=== PATIENT | female | born 1985 | race Caucasian/White ===

== ENCOUNTER 2020-09-12 20:15 | Emergency (ER) | payer BC ==
[2020-09-12 20:22] VITALS: TEMP 98.5
[2020-09-12] MEDS ORDERED: KETOROLAC 15 MG/ML 1 ML VIAL IVP STA (20:34)
[2020-09-12] MEDS ORDERED: SODIUM CHLORIDE 0.9% 1,000 ML IV STA (20:34)
[2020-09-12] MEDS ORDERED: ONDANSETRON 4 MG/2 ML VIAL IVP STA (20:34)
--- NOTE | 2020-09-12 20:41 | ED ---
Abdominal Pain HPI - General Chief Complaint: Abdominal Pain Stated Complaint: ABD pain Source: patient, family, RN notes reviewed Mode of arrival: ambulatory Limitations: no limitations - History of Present Illness Initial Comments: 34-year-old well-appearing well-nourished white female presents to the emergency room with family member complaining of 3 days of right upper abdominal pain that radiates to her right lower quadrant. She states that the pain is 6 out of 10 and sharp. Patient states that she also has nausea but denies any vomiting. She also denies any fevers or cough or any sick contacts. She states that she does have a history of ovarian cyst on the left but has never been told she has been on the right. She states that her period started 2 days ago and has been heavy. She states also that she was just taken off of control pills by her primary care doctor 2 months ago for thickened uterus. Patient states she takes oxybutynin for overactive bladder. No other medications. She is a nonsmoker. Patient states that she does have a family history of kidney stones. No family history of gallbladder disease. MD Complaint: abdominal pain -: days(s) (3) Location: RUQ Radiation: RLQ Severity scale (1-10): 6 Quality: stabbing Consistency: intermittent Improves With: nothing Worsens With: other (Outpatient) Associated Symptoms: nausea, other (Decreased appetite) - Related Data LMP Date: 09/10/20 LMP (females 10-50): this week Home Medications Medication Instructions Recorded Confirmed Oxybutynin Chloride [Ditropan] 5 mg PO HS 09/12/20 09/12/20 Previous Rx's Medication Instructions Recorded Ondansetron Odt [Zofran Odt] 4 mg PO Q8HR PRN #10 tab 09/12/20 Allergies Allergy/AdvReac Type Severity Reaction Status Date / Time No Known Allergies Allergy Verified 09/12/20 21:09 Review of Systems ROS Statement: Those systems with pertinent positive or pertinent negative responses have been documented in the HPI. ROS Other: All systems not noted in ROS Statement are negative. Past Medical History Additional Past Medical History / Comment(s): gestational diabetes. ovarian cysts. History of Any Multi-Drug Resistant Organisms: None Reported Past Surgical History: No Surgical Hx Reported Past Psychological History: No Psychological Hx Reported Smoking Status: Never smoker Past Alcohol Use History: None Reported Past Drug Use History: None Reported General Exam Limitations: no limitations General appearance: alert, in no apparent distress Head exam: Present: atraumatic, normocephalic, normal inspection Eye exam: Present: normal appearance, PERRL, EOMI. Absent: scleral icterus, conjunctival injection, periorbital swelling Pupils: Present: normal accommodation ENT exam: Present: normal exam, normal oropharynx, mucous membranes moist Neck exam: Present: normal inspection, full ROM. Absent: tenderness, meningismus, lymphadenopathy, thyromegaly Respiratory exam: Present: normal lung sounds bilaterally. Absent: respiratory distress, wheezes, rales, rhonchi, stridor, chest wall tenderness, accessory muscle use, decreased breath sounds, prolonged expiratory Cardiovascular Exam: Present: regular rate, normal rhythm, normal heart sounds. Absent: systolic murmur, diastolic murmur, rubs, gallop, clicks GI/Abdominal exam: Present: soft, tenderness (Right upper radiates to right lower), normal bowel sounds. Absent: distended, guarding, rebound, rigid Extremities exam: Present: normal inspection, full ROM, normal capillary refill. Absent: tenderness, pedal edema, joint swelling, calf tenderness Back exam: Present: normal inspection, full ROM. Absent: tenderness, CVA tenderness (R), CVA tenderness (L), muscle spasm, paraspinal tenderness, vertebral tenderness, rash noted Neurological exam: Present: alert, oriented X3, CN II-XII intact Psychiatric exam: Present: normal affect, normal mood Skin exam: Present: warm, dry, intact, normal color. Absent: rash, cyanosis, diaphoretic, erythema, petechiae, pallor, mottled Course Vital Signs 09/12/20 09/12/20 20:17 21:39 Temperature 98.5 F Pulse Rate 77 65 Respiratory 18 14 Rate Blood Pressure 142/98 123/83 O2 Sat by Pulse 98 98 Oximetry Medical Decision Making - Medical Decision Making WBC count is 8.8, hemoglobin and hematocrit stable at 12 and 36 respectively, BUN is 21 creatinine is 1.11, glucose is 108, PLT is 70. UA shows large blood however patient is menstruating, urine is negative. Patient has a large obstructing 12mm calculus at the right UPJ with hydronephrosis. There is a 10 mm calculus lateral right kidney with multiple smaller calculi in the upper right Diogenes. There is a 3 mm calculus in the upper pole of the left kidney. There is no retroperitoneal adenopathy. Liver spleen stomach pancreas and gallbladder appear normal. Patient has not had any vomiting in the emergency room she is able to urinate on her own without difficulty, she has been afebrile. Case discussed with Dr. Gonzalez who recommended sending patient home to follow up with urology next week. Patient will be given a dose of Flomax, a starter pack of Tylenol #3's, and a prescription for Zofran. She'll also be directed to return to the emergency room with any increasing pain, nausea vomiting or fevers. - Lab Data Result diagrams: 09/12/20 20:46 09/12/20 20:46 Lab Results 09/12/20 09/12/20 09/12/20 Range/Units 20:46 20:46 20:46 WBC 8.8 (3.8-10.6) k/uL RBC 4.05 (3.80-5.40) m/uL Hgb 12.1 (11.4-16.0) gm/dL Hct 36.2 (34.0-46.0) % MCV 89.4 (80.0-100.0) fL MCH 29.9 (25.0-35.0) pg MCHC 33.4 (31.0-37.0) g/dL RDW 13.4 (11.5-15.5) % Plt Count 229 (150-450) k/uL MPV 7.4 Neutrophils % 61 % Lymphocytes % 29 % Monocytes % 6 % Eosinophils % 1 % Basophils % 0 % Neutrophils # 5.4 (1.3-7.7) k/uL Lymphocytes # 2.6 (1.0-4.8) k/uL Monocytes # 0.5 (0-1.0) k/uL Eosinophils # 0.1 (0-0.7) k/uL Basophils # 0.0 (0-0.2) k/uL Sodium (137-145) mmol/L Potassium (3.5-5.1) mmol/L Chloride (98-107) mmol/L Carbon Dioxide (22-30) mmol/L Anion Gap mmol/L BUN (7-17) mg/dL Creatinine (0.52-1.04) mg/dL Est GFR (CKD-EPI)AfAm (>60 ml/min/1.73 sqM) Est GFR (CKD-EPI)NonAf (>60 ml/min/1.73 sqM) Glucose (74-99) mg/dL Calcium (8.4-10.2) mg/dL Total Bilirubin (0.2-1.3) mg/dL AST (14-36) U/L ALT (4-34) U/L Alkaline Phosphatase (38-126) U/L Total Protein (6.3-8.2) g/dL Albumin (3.5-5.0) g/dL Amylase (30-110) U/L Lipase (23-300) U/L Urine Color Light Yellow Urine Appearance Cloudy H (Clear) Urine pH 6.0 (5.0-8.0) Ur Specific [place] 1.017 (1.001-1.035) Urine Protein Negative (Negative) Urine Glucose (UA) Negative (Negative) Urine Ketones Negative (Negative) Urine Blood Large H (Negative) Urine Nitrite Negative (Negative) Urine Bilirubin Negative (Negative) Urine Urobilinogen <2.0 (<2.0) mg/dL Ur Leukocyte Esterase Small H (Negative) Urine RBC 9 H (0-5) /hpf Urine WBC 5 (0-5) /hpf Ur Squamous Epith Cells 6 H (0-4) /hpf Urine Mucus Rare H (None) /hpf Urine HCG, Qual Not Detected (Not Detectd) 09/12/20 Range/Units 20:46 WBC (3.8-10.6) k/uL RBC (3.80-5.40) m/uL Hgb (11.4-16.0) gm/dL Hct (34.0-46.0) % MCV (80.0-100.0) fL MCH (25.0-35.0) pg MCHC (31.0-37.0) g/dL RDW (11.5-15.5) % Plt Count (150-450) k/uL MPV Neutrophils % % Lymphocytes % % Monocytes % % Eosinophils % % Basophils % % Neutrophils # (1.3-7.7) k/uL Lymphocytes # (1.0-4.8) k/uL Monocytes # (0-1.0) k/uL Eosinophils # (0-0.7) k/uL Basophils # (0-0.2) k/uL Sodium 139 (137-145) mmol/L Potassium 4.0 (3.5-5.1) mmol/L Chloride 104 (98-107) mmol/L Carbon Dioxide 25 (22-30) mmol/L Anion Gap 10 mmol/L BUN 21 H (7-17) mg/dL Creatinine 1.11 H (0.52-1.04) mg/dL Est GFR (CKD-EPI)AfAm 75 (>60 ml/min/1.73 sqM) Est GFR (CKD-EPI)NonAf 65 (>60 ml/min/1.73 sqM) Glucose 108 H (74-99) mg/dL Calcium 9.9 (8.4-10.2) mg/dL Total Bilirubin 0.4 (0.2-1.3) mg/dL AST 38 H (14-36) U/L ALT 70 H (4-34) U/L Alkaline Phosphatase 47 (38-126) U/L Total Protein 7.1 (6.3-8.2) g/dL Albumin 4.6 (3.5-5.0) g/dL Amylase 54 (30-110) U/L Lipase 111 (23-300) U/L Urine Color Urine Appearance (Clear) Urine pH (5.0-8.0) Ur Specific [place] (1.001-1.035) Urine Protein (Negative) Urine Glucose (UA) (Negative) Urine Ketones (Negative) Urine Blood (Negative) Urine Nitrite (Negative) Urine Bilirubin (Negative) Urine Urobilinogen (<2.0) mg/dL Ur Leukocyte Esterase (Negative) Urine RBC (0-5) /hpf Urine WBC (0-5) /hpf Ur Squamous Epith Cells (0-4) /hpf Urine Mucus (None) /hpf Urine HCG, Qual (Not Detectd) Disposition Clinical Impression: Kidney stones Disposition: HOME SELF-CARE Condition: Fair Additional Instructions: Return to the emergency room with any increasing pain, nausea and vomiting that has not resolved with Zofran or fevers. Take Tylenol threes as needed for pain, Zofran as needed for nausea vomiting and follow-up with urology next week Prescriptions: Ondansetron Odt [Zofran Odt] 4 mg PO Q8HR PRN #10 tab PRN Reason: Nausea Is patient prescribed a controlled substance at d/c from ED?: No Referrals: None,Stated [Primary Care Provider] - 1-2 days Curt Holbrook MD [STAFF PHYSICIAN] - 1-2 days Time of Disposition: 22:17
[2020-09-12 20:59] LABS: Basophils % (A) 0 %; Eosinophils # (A) 0.1 k/uL (0-0.7); Eosinophils % (A) 1 %; HCT 36.2 % (34.0-46.0); HGB 12.1 gm/dL (11.4-16.0); Lymphocytes # (A) 2.6 k/uL (1.0-4.8); Lymphocytes % (A) 29 %; MCH 29.9 pg (25.0-35.0); MCHC 33.4 g/dL (31.0-37.0); MCV 89.4 fL (80.0-100.0); Mean Platelet Volume 7.4; Monocytes # (A) 0.5 k/uL (0-1.0); Monocytes % (A) 6 %; Neutrophils # (A) 5.4 k/uL (1.3-7.7); Neutrophils % (A) 61 %; Platelet Count 229 k/uL (150-450); RBC 4.05 m/uL (3.80-5.40); RDW 13.4 % (11.5-15.5); WBC 8.8 k/uL (3.8-10.6)
[2020-09-12 21:03] LABS: Appearance,Urine Cloudy (Clear); Bilirubin,Urine Negative (Negative); Blood,Urine Large (Negative); Color,Urine Light Yellow; Glucose,Urine (UA) Negative (Negative); Ketones,Urine Negative (Negative); Leukocyte Esterase,Urine Small (Negative); Mucus,Urine Rare /hpf; Nitrite,Urine Negative (Negative); Protein,Urine Negative (Negative); RBC,Urine 9 /hpf (0-5); Specific Gravity,Urine 1.017 (1.001-1.035); Squamous Epithelial Cell,Urine 6 /hpf (0-4); Urobilinogen,Urine <2.0 mg/dL (<2.0); WBC,Urine 5 /hpf (0-5)
[2020-09-12 21:06] LABS: Albumin 4.6 g/dL (3.5-5.0); Calcium 9.9 mg/dL (8.4-10.2); Total Bilirubin 0.4 mg/dL (0.2-1.3); Total Protein 7.1 g/dL (6.3-8.2)
[2020-09-12 21:41] VITALS: BP 123/83; PULSE 65; RESP 14
--- NOTE | 2020-09-12 21:48 | CT ---
EXAMINATION TYPE: CT abdomen pelvis wo con DATE OF EXAM: 09/12/2020 COMPARISON: None HISTORY: flank pain CT DLP: 625.5 mGycm Automated exposure control for dose reduction was used. Images obtained from the diaphragm to the floor the pelvis without contrast. The lung bases are clear of infiltrate. There is no pleural effusion. Heart size is normal. There is no pericardial effusion. Liver spleen stomach pancreas gallbladder appear normal. The bile ducts are not dilated. There is no adrenal mass. There is enlarged right kidney with hydronephrosis. There is a 12 mm obstru cting calculus at the ureteral pelvic junction. There is 10 mm calculus lateral right kidney. There a re smaller calculi upper pole right kidney. There is 3 mm calculus upper pole left kidney. There is n o retroperitoneal adenopathy. Bladder distends smoothly. There is no inguinal hernia. Uterus is retroverted. Lumbar vertebra have n ormal alignment. Disc spaces are fairly normal. There is no compression fracture. The bony pelvis is intact. The hip joints are intact. There is no hip dysplasia. Liver is enlarged and measures 23 cm. T here is long appendix appears normal. There is no mesenteric edema. There is no ascites or free air. There is no bowel obstruction. Spleen measures 13.5 cm. IMPRESSION: Obstructing large calculus at the ureteropelvic junction with moderate hydronephrosis. Bilateral mult iple renal calculi. Hepatomegaly.
[2020-09-12] MEDS ORDERED: TAMSULOSIN 0.4 MG CAP.ER.24H PO STA (22:18)
[2020-09-12] MEDS ORDERED: ACET/COD 300 MG/30 MG STARTER PACK 6 TAB BTL PO STA (22:18)
== END 2020-09-12 22:27 | disposition home or self-care (01) ==
LOC: EC 20:15
DX: N13.2 Hydronephrosis with renal and ureteral calculous obstruction (principal)
CPT/HCPCS: 36415; 80053; 82150; 83690; 85025; 81001; 81025; 74176; 99284; 96374; 96375; 96361; J2405; J1885

== ENCOUNTER 2020-09-13 19:59 | Inpatient (IN) | payer BC ==
[2020-09-13] MEDS ORDERED: MORPHINE SULFATE 4 MG/ML SYRINGE IV STA (20:25)
[2020-09-13] MEDS ORDERED: ONDANSETRON 4 MG/2 ML VIAL IVP STA (20:25)
[2020-09-13] MEDS ORDERED: SODIUM CHLORIDE 0.9% 1,000 ML IV STA (20:25)
[2020-09-13 20:47] LABS: Basophils % (A) 0 %; Eosinophils # (A) 0.2 k/uL (0-0.7); Eosinophils % (A) 2 %; Lymphocytes # (A) 1.8 k/uL (1.0-4.8); Lymphocytes % (A) 24 %; MCH 31.7 pg (25.0-35.0); MCHC 36.4 g/dL (31.0-37.0); Mean Platelet Volume 7.7; Monocytes # (A) 0.5 k/uL (0-1.0); Monocytes % (A) 7 %; Neutrophils % (A) 66 %; Platelet Count 232 k/uL (150-450); RDW 12.6 % (11.5-15.5); WBC 7.6 k/uL (3.8-10.6)
[2020-09-13 21:00] LABS: Albumin 4.3 g/dL (3.5-5.0); Calcium 10.1 mg/dL (8.4-10.2); Potassium 3.7 mmol/L (3.5-5.1); Total Bilirubin 0.4 mg/dL (0.2-1.3); Total Protein 6.8 g/dL (6.3-8.2)
[2020-09-13 21:20] LABS: Appearance,Urine Clear (Clear); Bilirubin,Urine Negative (Negative); Blood,Urine Small (Negative); Color,Urine Light Yellow; Glucose,Urine (UA) Negative (Negative); Hyaline Casts,Urine 1 /lpf (0-2); Ketones,Urine Negative (Negative); Leukocyte Esterase,Urine Small (Negative); Mucus,Urine Rare /hpf; Nitrite,Urine Negative (Negative); PH, Urine 5.5 (5.0-8.0); Protein,Urine Negative (Negative); RBC,Urine 1 /hpf (0-5); Specific Gravity,Urine 1.012 (1.001-1.035); Squamous Epithelial Cell,Urine 3 /hpf (0-4); Urobilinogen,Urine <2.0 mg/dL (<2.0); WBC,Urine 4 /hpf (0-5)
[2020-09-13] MEDS ORDERED: NALOXONE 0.4 MG/ML 1 ML VIAL IV PRN (21:33)
--- NOTE | 2020-09-13 21:37 | ED ---
Abdominal Pain HPI - General Chief Complaint: Abdominal Pain Stated Complaint: Kidney stone-Revisit Time Seen by Provider: 09/13/20 20:07 Source: patient, RN notes reviewed Mode of arrival: ambulatory Limitations: no limitations - History of Present Illness Initial Comments: Patient is a 34-year-old female that presents to emergency department complaini ng of right flank pain. She was recently seen in the emergency room and sent home with 2 large kidney stones. She noted that she called Dr. Holbrook prior to arrival to get admitted for intractable pain and possible stone removal. Patient did appear to be in moderate discomfort while sitting up in bed during exam and interview. She noted that her pain was approximately an 8-9 out of 10. She noted that she is still urinating with no issues. She denied any chest pain first breath headache nausea vomiting diarrhea constipation fever fatigue chills. - Related Data Home Medications Medication Instructions Recorded Confirmed Oxybutynin Chloride [Ditropan] 5 mg PO HS 09/12/20 09/12/20 Previous Rx's Medication Instructions Recorded Ondansetron Odt [Zofran Odt] 4 mg PO Q8HR PRN #10 tab 09/12/20 Allergies Allergy/AdvReac Type Severity Reaction Status Date / Time No Known Allergies Allergy Verified 09/13/20 20:01 Review of Systems ROS Statement: Those systems with pertinent positive or pertinent negative responses have been documented in the HPI. ROS Other: All systems not noted in ROS Statement are negative. Past Medical History Additional Past Medical History / Comment(s): gestational diabetes. ovarian cysts. History of Any Multi-Drug Resistant Organisms: None Reported Past Surgical History: No Surgical Hx Reported Past Psychological History: No Psychological Hx Reported Smoking Status: Never smoker Past Alcohol Use History: None Reported Past Drug Use History: None Reported General Exam Limitations: no limitations General appearance: alert, in no apparent distress Head exam: Present: atraumatic, normocephalic, normal inspection Eye exam: Present: normal appearance, PERRL, EOMI. Absent: scleral icterus, conjunctival injection, periorbital swelling Neck exam: Present: normal inspection Respiratory exam: Present: normal lung sounds bilaterally. Absent: respiratory distress, wheezes, rales, rhonchi, stridor Cardiovascular Exam: Present: regular rate, normal rhythm, normal heart sounds. Absent: systolic murmur, diastolic murmur, rubs, gallop, clicks GI/Abdominal exam: Present: soft, normal bowel sounds. Absent: distended, tenderness, guarding, rebound, rigid Extremities exam: Present: normal inspection, full ROM, normal capillary refill. Absent: tenderness, pedal edema, joint swelling, calf tenderness Back exam: Present: normal inspection, full ROM, CVA tenderness (R) Neurological exam: Present: alert, oriented X3 Psychiatric exam: Present: normal affect, normal mood Skin exam: Present: warm, dry, intact, normal color. Absent: rash Course Vital Signs 09/13/20 20:02 Temperature 98 F Pulse Rate 77 Respiratory 18 Rate Blood Pressure 156/79 O2 Sat by Pulse 100 Oximetry Medical Decision Making - Medical Decision Making 34-year-old female with right sided kidney stones presenting for the second time in the past several days. Labs, 1 L normal saline, 4 g of morphine, 4 mg of Zofran, KUB ordered. Labs unremarkable from previous. Dr. Holbrook was contacted and will accept the admit directly to himself. Case discussed with Dr. Gonzalez - Lab Data Result diagrams: 09/13/20 20:27 09/13/20 20:27 Lab Results 09/13/20 09/13/20 09/13/20 Range/Units 20:27 20:27 20:27 WBC 7.6 (3.8-10.6) k/uL RBC 3.80 (3.80-5.40) m/uL Hgb 12.0 (11.4-16.0) gm/dL Hct 33.0 L (34.0-46.0) % MCV 87.0 (80.0-100.0) fL MCH 31.7 (25.0-35.0) pg MCHC 36.4 (31.0-37.0) g/dL RDW 12.6 (11.5-15.5) % Plt Count 232 (150-450) k/uL MPV 7.7 Neutrophils % 66 % Lymphocytes % 24 % Monocytes % 7 % Eosinophils % 2 % Basophils % 0 % Neutrophils # 5.0 (1.3-7.7) k/uL Lymphocytes # 1.8 (1.0-4.8) k/uL Monocytes # 0.5 (0-1.0) k/uL Eosinophils # 0.2 (0-0.7) k/uL Basophils # 0.0 (0-0.2) k/uL Sodium (137-145) mmol/L Potassium (3.5-5.1) mmol/L Chloride (98-107) mmol/L Carbon Dioxide (22-30) mmol/L Anion Gap mmol/L BUN (7-17) mg/dL Creatinine (0.52-1.04) mg/dL Est GFR (CKD-EPI)AfAm (>60 ml/min/1.73 sqM) Est GFR (CKD-EPI)NonAf (>60 ml/min/1.73 sqM) Glucose (74-99) mg/dL Plasma Lactic Acid Roger (0.7-2.0) mmol/L Calcium (8.4-10.2) mg/dL Total Bilirubin (0.2-1.3) mg/dL AST (14-36) U/L ALT (4-34) U/L Alkaline Phosphatase (38-126) U/L Total Protein (6.3-8.2) g/dL Albumin (3.5-5.0) g/dL Amylase (30-110) U/L Lipase (23-300) U/L Urine Color Light Yellow Urine Appearance Clear (Clear) Urine pH 5.5 (5.0-8.0) Ur Specific [place] 1.012 (1.001-1.035) Urine Protein Negative (Negative) Urine Glucose (UA) Negative (Negative) Urine Ketones Negative (Negative) Urine Blood Small H (Negative) Urine Nitrite Negative (Negative) Urine Bilirubin Negative (Negative) Urine Urobilinogen <2.0 (<2.0) mg/dL Ur Leukocyte Esterase Small H (Negative) Urine RBC 1 (0-5) /hpf Urine WBC 4 (0-5) /hpf Ur Squamous Epith Cells 3 (0-4) /hpf Hyaline Casts 1 (0-2) /lpf Urine Mucus Rare H (None) /hpf Urine HCG, Qual Not Detected (Not Detectd) 09/13/20 09/13/20 Range/Units 20:27 20:27 WBC (3.8-10.6) k/uL RBC (3.80-5.40) m/uL Hgb (11.4-16.0) gm/dL Hct (34.0-46.0) % MCV (80.0-100.0) fL MCH (25.0-35.0) pg MCHC (31.0-37.0) g/dL RDW (11.5-15.5) % Plt Count (150-450) k/uL MPV Neutrophils % % Lymphocytes % % Monocytes % % Eosinophils % % Basophils % % Neutrophils # (1.3-7.7) k/uL Lymphocytes # (1.0-4.8) k/uL Monocytes # (0-1.0) k/uL Eosinophils # (0-0.7) k/uL Basophils # (0-0.2) k/uL Sodium 140 (137-145) mmol/L Potassium 3.7 (3.5-5.1) mmol/L Chloride 103 (98-107) mmol/L Carbon Dioxide 26 (22-30) mmol/L Anion Gap 11 mmol/L BUN 17 (7-17) mg/dL Creatinine 1.12 H (0.52-1.04) mg/dL Est GFR (CKD-EPI)AfAm 74 (>60 ml/min/1.73 sqM) Est GFR (CKD-EPI)NonAf 64 (>60 ml/min/1.73 sqM) Glucose 120 H (74-99) mg/dL Plasma Lactic Acid Roger 1.4 (0.7-2.0) mmol/L Calcium 10.1 (8.4-10.2) mg/dL Total Bilirubin 0.4 (0.2-1.3) mg/dL AST 36 (14-36) U/L ALT 69 H (4-34) U/L Alkaline Phosphatase 46 (38-126) U/L Total Protein 6.8 (6.3-8.2) g/dL Albumin 4.3 (3.5-5.0) g/dL Amylase 53 (30-110) U/L Lipase 103 (23-300) U/L Urine Color Urine Appearance (Clear) Urine pH (5.0-8.0) Ur Specific [place] (1.001-1.035) Urine Protein (Negative) Urine Glucose (UA) (Negative) Urine Ketones (Negative) Urine Blood (Negative) Urine Nitrite (Negative) Urine Bilirubin (Negative) Urine Urobilinogen (<2.0) mg/dL Ur Leukocyte Esterase (Negative) Urine RBC (0-5) /hpf Urine WBC (0-5) /hpf Ur Squamous Epith Cells (0-4) /hpf Hyaline Casts (0-2) /lpf Urine Mucus (None) /hpf Urine HCG, Qual (Not Detectd) Disposition Clinical Impression: Kidney stones Disposition: ADMITTED IP TO THIS HOSP Condition: Stable Is patient prescribed a controlled substance at d/c from ED?: No Referrals: None,Stated [Primary Care Provider] - 1-2 days Time of Disposition: 21:37
[2020-09-13] MEDS: SODIUM CHLORIDE 0.9% 1,000 ML IV SCH (21:56)
--- NOTE | 2020-09-13 22:00 | XR ---
EXAM: Abdomen radiograph. HISTORY: Pain. TECHNIQUE: Upright AP view. COMPARISON: CT 09/12/2020. FINDINGS: There are nondilated bowel loops with a nonobstructive pattern. There is moderate amount of stool thr oughout the colon. There is 5 mm calcific density overlying the right renal shadow and compatible wit h renal calculus. No acute osseous abnormality seen. IMPRESSION: No acute process. Chronic finding as above.
[2020-09-14] MEDS: MORPHINE SULFATE 4 MG/ML SYRINGE IV PRN ×2 (00:02→06:18)
[2020-09-14] MEDS: ONDANSETRON 4 MG/2 ML VIAL IVP PRN ×2 (03:20→08:58)
[2020-09-14] MEDS ORDERED: LACTATED RINGERS 1,000 ML IV SCH (10:15)
--- NOTE | 2020-09-14 11:42 | P.GSHP ---
History of Present Illness H&P Date: 09/14/20 Chief Complaint: Right renal colic The patient is a 34-year-old white female with no prior history of urolithiasis. She presents with a one-week history of right flank pain, which initially was dull but became severe on 09/12/2020. A CT scan at that time showed evidence of moderate right hydronephrosis due to a 12 mm right proximal ureteral calculi. The CT scan also showed an 8 mm right lower pole renal calculus, 3 additional very small right renal calculi, and a 3 mm left upper pole renal calculus. She presented back to the ER yesterday with intractable pain and was admitted. - Constitutional Constitutional: Reports chills, Reports fever - Gastrointestinal Gastrointestinal: Reports nausea, Reports vomiting - Genitourinary (Female) Genitourinary: Reports dysuria, Reports flank pain, Reports hematuria, Reports kidney stones Past Medical History Additional Past Medical History / Comment(s): gestational diabetes. ovarian cysts. History of Any Multi-Drug Resistant Organisms: None Reported Past Surgical History: No Surgical Hx Reported Past Anesthesia/Blood Transfusion Reactions: No Reported Reaction Past Psychological History: No Psychological Hx Reported Smoking Status: Never smoker Past Alcohol Use History: None Reported Past Drug Use History: None Reported - Past Family History Father Family Medical History: Diabetes Mellitus, Hypertension Medications and Allergies Home Medications Medication Instructions Recorded Confirmed Type Oxybutynin Chloride [Ditropan] 5 mg PO HS 09/12/20 09/14/20 History Ondansetron [Zofran] 4 mg PO Q8H PRN 09/14/20 09/14/20 History Allergies Allergy/AdvReac Type Severity Reaction Status Date / Time No Known Allergies Allergy Verified 09/14/20 09:58 Surgical - Exam Vital Signs Temp Pulse Resp BP Pulse Ox 98 F 77 18 156/79 100 09/13/20 20:02 09/13/20 20:02 09/13/20 20:02 09/13/20 20:02 09/13/20 20:02 - General well developed, well nourished, severe pain - Neck no masses, trachea midline - Respiratory normal respiratory effort - Abdomen Abdomen: soft, tender (Moderate right-sided tenderness), no guarding, no rigid, no rebound, no distended - Psychiatric oriented to time, oriented to person, oriented to place, speech is normal, memory intact Results - Labs 09/13/20 20:27 09/13/20 20:27 Abnormal Lab Results - Last 24 Hours (Table) 09/13/20 09/13/20 09/13/20 Range/Units 20:27 20:27 20:27 Hct 33.0 L (34.0-46.0) % Creatinine 1.12 H (0.52-1.04) mg/dL Glucose 120 H (74-99) mg/dL ALT 69 H (4-34) U/L Urine Blood Small H (Negative) Ur Leukocyte Esterase Small H (Negative) Urine Mucus Rare H (None) /hpf Diabetes panel 09/13/20 Range/Units 20:27 Sodium 140 (137-145) mmol/L Potassium 3.7 (3.5-5.1) mmol/L Chloride 103 (98-107) mmol/L Carbon Dioxide 26 (22-30) mmol/L BUN 17 (7-17) mg/dL Creatinine 1.12 H (0.52-1.04) mg/dL Glucose 120 H (74-99) mg/dL Calcium 10.1 (8.4-10.2) mg/dL AST 36 (14-36) U/L ALT 69 H (4-34) U/L Alkaline Phosphatase 46 (38-126) U/L Total Protein 6.8 (6.3-8.2) g/dL Albumin 4.3 (3.5-5.0) g/dL Calcium panel 09/13/20 Range/Units 20:27 Calcium 10.1 (8.4-10.2) mg/dL Albumin 4.3 (3.5-5.0) g/dL Pituitary panel 09/13/20 Range/Units 20:27 Sodium 140 (137-145) mmol/L Potassium 3.7 (3.5-5.1) mmol/L Chloride 103 (98-107) mmol/L Carbon Dioxide 26 (22-30) mmol/L BUN 17 (7-17) mg/dL Creatinine 1.12 H (0.52-1.04) mg/dL Glucose 120 H (74-99) mg/dL Calcium 10.1 (8.4-10.2) mg/dL Adrenal panel 09/13/20 Range/Units 20:27 Sodium 140 (137-145) mmol/L Potassium 3.7 (3.5-5.1) mmol/L Chloride 103 (98-107) mmol/L Carbon Dioxide 26 (22-30) mmol/L BUN 17 (7-17) mg/dL Creatinine 1.12 H (0.52-1.04) mg/dL Glucose 120 H (74-99) mg/dL Calcium 10.1 (8.4-10.2) mg/dL Total Bilirubin 0.4 (0.2-1.3) mg/dL AST 36 (14-36) U/L ALT 69 H (4-34) U/L Alkaline Phosphatase 46 (38-126) U/L Total Protein 6.8 (6.3-8.2) g/dL Albumin 4.3 (3.5-5.0) g/dL - Imaging Abdominal x-ray: report reviewed, image reviewed CT scan - abdomen: report reviewed, image reviewed Assessment and Plan (1) Calculus of ureter Current Visit: Yes Status: Acute Code(s): N20.1 - CALCULUS OF URETER SNOMED Code(s): 43014171 (2) Kidney stones Current Visit: Yes Status: Acute Code(s): N20.0 - CALCULUS OF KIDNEY SNOMED Code(s): 33052723 (3) Hydronephrosis with renal and ureteral calculous obstruction Current Visit: Yes Status: Acute Code(s): N13.2 - HYDRONEPHROSIS WITH RENAL AND URETERAL CALCULOUS OBSTRUCTION SNOMED Code(s): 841656247 Plan: The patient is receiving parenteral analgesics and antiemetics. She will undergo cystoscopy with right ureteral stent insertion. The procedure was reviewed in detail with the patient and her friend. The rationale for the procedure was discussed, as were potential risks which include anesthesia, infection, ureteral injury, and inability to successfully place the stent. Ureteroscopy will be performed if needed to assist in stent placement. A ureteral stent should relieve her pain significantly, and arrangements were then be made for her to undergo elective ureteroscopy with laser lithotripsy in 2-3 weeks. The possible need for a percutaneous nephrostomy tube was discussed. Time with Patient: Greater than 30
[2020-09-14] MEDS ORDERED: ONDANSETRON 4 MG/2 ML VIAL IVP PRN (11:43)
[2020-09-14] MEDS ORDERED: MORPHINE SULFATE 10 MG/ML 1ML VIAL IV PRN (11:44)
[2020-09-14] MEDS ORDERED: PROPOFOL 10 MG/ML 20 ML VIAL IV ONE (14:30)
[2020-09-14] MEDS ORDERED: fentaNYL (PF) 50 MCG/ML 2 ML AMP ONE (14:30)
[2020-09-14] MEDS ORDERED: LIDOCAINE 1% INJ 10MG/ML (20 ML MDV) ONE (14:30)
[2020-09-14] MEDS ORDERED: MIDAZOLAM 2 MG/2 ML VIAL ONE (14:30)
[2020-09-14] MEDS ORDERED: IV FLUID CONTINUATION 1,000 ML IV ONE (14:34)
[2020-09-14] MEDS ORDERED: SODIUM CHLORIDE 0.9% 100 ML with ceFAZolin 2,000 MG IV ONE ×4 (14:50)
[2020-09-14] MEDS ORDERED: LACTATED RINGERS 1,000 ML IV ONE (15:18)
[2020-09-14] MEDS ORDERED: HYDROcodone/APAP 5-325MG 1 EACH TAB PO PRN ×2 (15:35)
--- NOTE | 2020-09-14 15:41 | P.OP ---
Date of Procedure: 09/14/20 Preoperative Diagnosis: Right hydronephrosis secondary to right ureteral calculus Postoperative Diagnosis: Same Procedure(s) Performed: Cystoscopy, right ureteroscopy, right ureteral stent insertion Anesthesia: CHEIKHA Surgeon: uCrt Holbrook Estimated Blood Loss (ml): 0 IV fluids (ml): 500 Pathology: none sent Condition: stable Disposition: PACU Indications for Procedure: The patient is a 34-year-old white female with no prior history of urolithiasis. She presents with a one-week history of right flank pain, which initially was dull but became severe on 09/12/2020. A CT scan at that time showed evidence of moderate right hydronephrosis due to a 12 mm right proximal ureteral calculi. The CT scan also showed an 8 mm right lower pole renal calculus, 3 additional very small right renal calculi, and a 3 mm left upper pole renal calculus. She presented back to the ER yesterday with intractable pain and was admitted. She now comes for stent placement. Operative Findings: 12 mm right proximal ureteral calculus, radio-opaque, impacted. Description of Procedure: The patient was taken to the operating room and placed in the dorsolithotomy position, with legs supported in Colt stirrups. The external genitalia was prepped and draped sterilely. The 30 lens was used to introduce the 22-Bengali Stortz cystoscopic sheath through the urethra and into the bladder under direct vision. The bladder was examined in its entirety. Both ureteral orifices were of normal anatomic location and configuration. No tumors or foreign bodies were seen. An angle-tip 0.035 inch Glidewire was passed through the cystoscope. The right ureteral orifice was cannulated, and the Glidewire was slowly advanced up to the calculus. However, they could not be passed beyond the calculus, which was impacted. A 6-Bengali open-ended catheter was passed over the wire, up to the calculus, but it was still not possible to pass the wire tip beyond the calculus. The cystoscope was removed, and the [facility] semirigid ureteroscope was advanced into the bladder. The right ureteral orifice was cannulated, but the intramural portion of the ureter was narrowed. Therefore, the Glidewire was passed up to the calculus, and an 11-Bengali ureteral access catheter obturator was passed over the wire, up to the mid ureter. This was then removed along with the Glidewire, and it was then possible to advance the ureteroscope up to the calculus. On visualizing the calculus, a straight-tipped Glidewire was passed alongside the calculus and up to the right renal pelvis, were coiled. The ureteroscope was removed, and the Glidewire was backloaded into the cystoscope, which was passed into the bladder. A 24 cm, 6-Bengali double-J ureteral stent was placed over the wire. Proper stent positioning was verified fluor oscopically and endoscopically. The bladder was emptied and the cystoscope removed. The patient tolerated the procedure well was taken to the recovery room in stable condition.
[2020-09-14] MEDS: SODIUM CHLORIDE 0.9% 1,000 ML IV SCH (16:29)
[2020-09-14] MEDS: ACETAMINOPHEN TAB 325 MG TAB PO PRN (20:04)
[2020-09-15 02:54] VITALS: RESP 18
[2020-09-15] MEDS: SODIUM CHLORIDE 0.9% 1,000 ML IV SCH (06:18)
[2020-09-15] MEDS ORDERED: HYDROmorphone 0.5 MG/0.5 ML SYRINGE IVP PRN (07:00)
[2020-09-15 08:37] VITALS: BP 109/67; PULSE 78; TEMP 97.9
[2020-09-15] MEDS: ACETAMINOPHEN TAB 325 MG TAB PO PRN (08:38)
--- NOTE | 2020-09-15 09:25 | FL ---
Fluoroscopy History: Right ureteral stent placement. Stent placed in Right ureter with . 2 mins and 10 sec of fluoro used and 1 image saved.
--- NOTE | 2020-09-15 11:21 | P.DS ---
Providers Date of admission: 09/13/20 21:24 Expected date of discharge: 09/15/20 Attending physician: Curt Holbrook Primary care physician: Stated None - Discharge Diagnosis(es) (1) Calculus of ureter Current Visit: Yes Status: Acute (2) Kidney stones Current Visit: Yes Status: Acute (3) Hydronephrosis with renal and ureteral calculous obstruction Current Visit: Yes Status: Acute Hospital Course: The patient was admitted with severe right renal colic due to a 12 mm right proximal ureteral calculus. She was treated with IV hydration, parenteral analgesics, and antiemetics. She underwent cystoscopy with right ureteral stent insertion. On the morning of discharge, she felt considerably better. She reported a headache and suprapubic discomfort, for which she was taking Tylenol. She will be discharged home and continue taking oxybutynin chloride, as this may diminish bladder discomfort secondary to her ureteral stent. Procedures: Cystoscopy, right ureteral stent insertion on 09/14/2020 Patient Condition at Discharge: Stable Plan - Discharge Summary New Discharge Prescriptions: No Action Ondansetron [Zofran] 4 mg PO Q8H PRN PRN Reason: Nausea Oxybutynin Chloride [Ditropan] 5 mg PO HS Discharge Medication List Oxybutynin Chloride [Ditropan] 5 mg PO HS 09/12/20 [History] Ondansetron [Zofran] 4 mg PO Q8H PRN 09/14/20 [History] Follow up Appointment(s)/Referral(s): None,Stated [Primary Care Provider] - 1-2 days Activity/Diet/Wound Care/Special Instructions: Diet as tolerated. Activity as tolerated. The patient will be contacted by Dr. Holbrook' office to arrange follow-up. Discharge Disposition: HOME SELF-CARE
== END 2020-09-15 12:50 | disposition home or self-care (01) | DRG 661 ==
LOC: EC 19:59 → 6PED 21:24
PROVIDERS: ADMIT Urology; ATTEND Urology
PROC: 0T768DZ Dilation of Right Ureter with Intraluminal Device, Via Natural or Artificial Opening Endoscopic (ICD-10-PCS; principal; 2020-09-14 13:00)
PROC: 0T9B80Z Drainage of Bladder with Drainage Device, Via Natural or Artificial Opening Endoscopic (ICD-10-PCS; 2020-09-14 13:00)
DX: N13.2 Hydronephrosis with renal and ureteral calculous obstruction (principal); Z86.32 Personal history of gestational diabetes
CPT/HCPCS: 36415; 74018; 80053; 81001; 81025; 82150; 83605; 83690; 85025; 96374; 96375; 99285

== ENCOUNTER 2020-09-26 08:09 | Day surgery (SDC) | payer BC ==
--- NOTE | 2020-09-18 17:25 | P.GSHP ---
History of Present Illness H&P Date: 09/18/20 Chief Complaint: Right renal colic The patient is a 34-year-old white female with no prior history of urolithiasis. She presented with a one-week history of right flank pain, which initially was dull but became severe on 09/12/2020. A CT scan at that time showed evidence of moderate right hydronephrosis due to a 12 mm right proximal ureteral calculi. The CT scan also showed an 8 mm right lower pole renal calculus, 3 additional very small right renal calculi, and a 3 mm left upper pole renal calculus. She underwent right ureteral stent insertion on 09/14/2020. - Constitutional Constitutional: Reports chills, Reports fever - Gastrointestinal Gastrointestinal: Reports nausea, Reports vomiting - Genitourinary (Female) Genitourinary: Reports dysuria, Reports flank pain, Reports hematuria, Reports kidney stones Past Medical History Additional Past Medical History / Comment(s): gestational diabetes. ovarian cysts. History of Any Multi-Drug Resistant Organisms: None Reported Past Surgical History: No Surgical Hx Reported Past Anesthesia/Blood Transfusion Reactions: No Reported Reaction Past Psychological History: No Psychological Hx Reported Smoking Status: Never smoker Past Alcohol Use History: None Reported Past Drug Use History: None Reported - Past Family History Father Family Medical History: Diabetes Mellitus, Hypertension Medications and Allergies Home Medications Medication Instructions Recorded Confirmed Type Oxybutynin Chloride [Ditropan] 5 mg PO HS 09/12/20 09/14/20 History Ondansetron [Zofran] 4 mg PO Q8H PRN 09/14/20 09/14/20 History Allergies Allergy/AdvReac Type Severity Reaction Status Date / Time No Known Allergies Allergy Verified 09/14/20 09:58 Surgical - Exam - General well developed, well nourished, no distress - Respiratory normal respiratory effort - Abdomen Abdomen: soft, non tender, no guarding, no rigid, no rebound - Psychiatric oriented to time, oriented to person, oriented to place, speech is normal, memory intact Results - Imaging CT scan - abdomen: report reviewed, image reviewed Assessment and Plan (1) Calculus of ureter Status: Acute Code(s): N20.1 - CALCULUS OF URETER SNOMED Code(s): 51611169 (2) Kidney stones Status: Acute Code(s): N20.0 - CALCULUS OF KIDNEY SNOMED Code(s): 33228099 Plan: Cystoscopy, right ureteral stent removal, right ureteroscopy with Holmium laser lithotripsy and possible stone basketing. The procedure has been reviewed in detail with the patient. She has been made aware of potential risks, which include anesthesia, bleeding, infection, and ureteral injury. Given the stone burden, she has been made aware of the fact that she may require a secondary procedure.
[2020-09-24 13:14] VITALS: BMI 32.9
[~2020-09-26 08:09] MED LIST: DEXAMETHASONE SOD PHOSPHATE 4 MG/ML 1 ML VIAL IV ONE; HYDROmorphone 0.5 MG/0.5 ML SYRINGE IVP PRN; LACTATED RINGERS 1,000 ML IV SCH; MIDAZOLAM 2 MG/2 ML VIAL IV PRN; ONDANSETRON 4 MG/2 ML VIAL IVP ONE; SCOPOLAMINE 1.5MG/72HR PATCH TRANSDERM ONE
--- NOTE | 2020-09-26 08:47 | XR ---
EXAMINATION TYPE: XR KUB DATE OF EXAM: 09/26/2020 COMPARISON: 09/13/2020 INDICATION: Stones TECHNIQUE: Single view abdomen supine view FINDINGS: There is a normal bowel gas pattern. Psoas margins are normal. No organomegaly is present. There is a 1.6 x 0.8 cm calcification in the right transverse process adjacent to the ureteral stent. A 0.0 cm calcification overlies the right mid kidney adjacent to the proximal ureteral stent. IMPRESSION: 1. Right ureteral stone measuring 1.6 x 0.8 cm. 2. Right renal stone measured 0.7 cm.
[2020-09-26] MEDS ORDERED: LACTATED RINGERS 1,000 ML IV ONE ×2 (08:59→14:20)
[2020-09-26] MEDS ORDERED: HYDROmorphone (PF) 1 MG/ML ONE (12:57)
[2020-09-26] MEDS ORDERED: LIDOCAINE 1% INJ 10MG/ML (20 ML MDV) ONE (12:57)
[2020-09-26] MEDS ORDERED: KETOROLAC 15 MG/ML 1 ML VIAL ONE (12:57)
[2020-09-26] MEDS ORDERED: fentaNYL (PF) 50 MCG/ML 2 ML AMP ONE (12:57)
[2020-09-26] MEDS ORDERED: MIDAZOLAM 2 MG/2 ML VIAL ONE (12:57)
[2020-09-26] MEDS ORDERED: PROPOFOL 10 MG/ML 20 ML VIAL IV ONE (12:57)
--- NOTE | 2020-09-26 14:38 | P.OP ---
Date of Procedure: 09/26/20 Preoperative Diagnosis: Right ureteral calculus, right renal calculi Postoperative Diagnosis: Same Procedure(s) Performed: Cystoscopy, right ureteral stent removal, right ureteroscopy with Holmium laser lithotripsy and stone basketing Anesthesia: BORA Surgeon: Curt Holbrook Estimated Blood Loss (ml): 5 IV fluids (ml): 1,000 Pathology: other (Calculus fragments, simple chemical analysis) Condition: stable Disposition: PACU Indications for Procedure: The patient is a 34-year-old white female with no prior history of urolithiasis. She presented with a one-week history of right flank pain, which initially was dull but became severe on 09/12/2020. A CT scan at that time showed evidence of moderate right hydronephrosis due to a 12 mm right proximal ureteral calculi. The CT scan also showed an 8 mm right lower pole renal calculus, 3 additional very small right renal calculi, and a 3 mm left upper pole renal calculus. She underwent right ureteral stent insertion on 09/14/2020. Operative Findings: Large right proximal ureteral calculus, fragmented and removed completely. Multiple right renal calculi, fragmented completely. Description of Procedure: The patient was taken to the operating room and placed in the dorsolithotomy position, with legs supported in Colt stirrups. The external genitalia was prepped and draped sterilely. The 30 lens was used to introduce the 21-Danish Schwab cystoscopic sheath through the urethra and into the bladder under direct vision. The bladder was examined in its entirety. The distal end of the right ureteral stent was grasped with Monegasque forceps and removed along with the cystoscope. The Schwab semirigid ureteroscope was advanced into the bladder, and the right ureteral orifice was cannulated. The ureteroscope was slowly advanced under direct vision up to the calculus. The 272 micron Holmium laser probe was passed through the ureteroscope, and lithotripsy was performed. The calculus was fragmented completely. The 1.9-Danish nitinol basket was used to remove all of the calculus fragments from the ureter. The mini flexible ureteroscope was then advanced into the bladder, and the right ureteral orifice was cannulated. The ureteroscope was slowly advanced under direct vision, up to the right renal pelvis. A bifid pelvis was noted. Each calyx was examined. The 8 mm calculus was seen within a lower pole calyx. Several additional smaller calculi were seen. All fragmented completely. This was done until there were no residual calculus fragments exceeding 1 mm in size. The ureteroscope was slowly withdrawn under direct vision. There were no residual calculus fragments within the ureter, and no evidence of ureteral trauma. After removing the ureteroscope, the cystoscope was advanced into the bladder and the bladder was emptied. Calculus fragments were retrieved and sent for chemical analysis. The patient tolerated the procedure well and was taken to the recovery room in stable condition. [facility] Report: Procedure Acuity: Elective Stone Size and Location: 12 mm, right proximal ureter Ureteral Dilation: No Ureteral Access Sheath Used: No Stone Sent for Analysis: Yes All Stones/Fragments Were Removed with a Basket: Yes Complications: No Preoperative Antibiotics Given: Yes Stent Placed: No
[2020-09-26 14:46] VITALS: RESP 16; TEMP 98.6
--- NOTE | 2020-09-26 15:06 | FL ---
Fluoroscopy INDICATION: Pain FINDINGS: Fluoroscopy time: 3 seconds. Images obtained: 1. IMPRESSIONS: 1. Documentation of fluoroscopy.
[2020-09-26 16:02] VITALS: PULSE 100
[2020-09-26 16:08] VITALS: BP 129/81
[2020-09-26] MEDS ORDERED: ONDANSETRON 4 MG/2 ML VIAL ONE (16:19)
== END 2020-09-26 17:01 | disposition home or self-care (01) ==
LOC: OR 08:09
PROVIDERS: ATTEND Urology
DX: N13.2 Hydronephrosis with renal and ureteral calculous obstruction (principal); Z88.5 Allergy status to narcotic agent; Z88.8 Allergy status to other drugs, medicaments and biological substances
CPT/HCPCS: 81025; 82365; 74018; 52353; J2250; J1100; J0690; J2405; J2001; J3010; J1170; J1885; J2704

== ENCOUNTER → 2020-10-28 | Outpatient (CLI) | payer BC ==
--- NOTE | 2020-10-28 15:13 | XR ---
EXAMINATION TYPE: XR KUB DATE OF EXAM: 10/28/2020 HISTORY: Pain Comparison: 09/26/2020ingle KUB is submitted for interpretation. Findings: Right renal calculi: Previously noted right renal calculi is not redemonstrated. Right ureteral calculi: Right ureteral stent has been removed in the interval. Large right mid urete ral calculus seen previously is not identified at this time. Small calcification at the S4 level on t he right measures 3 mm. Left renal calculi: None Visualized. Left ureteral calculi: None Visualized. Pelvic calcifications: Yes Bowel gas pattern is unremarkable. No free air. No mass effects. IMPRESSION: 1. Previously noted right renal calculus and right ureteral calculus is not seen with certainty. Ther e is a calcific density at the approximate right S4 level which could reflect ureteral calculus. Fang elate clinically. Right ureteral stent has been removed.
== END | disposition home or self-care (01) ==
LOC: RADXRMAIN 14:24
PROVIDERS: ATTEND Urology
DX: N20.0 Calculus of kidney (principal)
CPT/HCPCS: 74018